=== PATIENT | female | born 1955 ===

== ENCOUNTER 2017-01-20 07:29 | Day surgery (SDC) | payer MEDICARE, OTHER ==
[2017-01-15 15:29] VITALS: BMI 21.7
[~2017-01-20 07:29] MED LIST: DEXAMETHASONE SOD PHOSPHATE 10 MG/ML 1 ML VIAL IV ONE; HYDROmorphone 1 MG/ML 1 ML SYRINGE IVP PRN; LACTATED RINGERS 1,000 ML IV SCH; LIDOCAINE 1% 20 ML VIAL (10MG/ML) FOR IV START INTRADERMA PRN; MIDAZOLAM 2 MG/2 ML VIAL IV PRN; ONDANSETRON 4 MG/2 ML VIAL IVP ONE; SCOPOLAMINE 1.5MG/72HR PATCH TRANSDERM ONE; ceFAZolin 2 GM in SODIUM CHLORIDE 0.9% 100 ML IVPB ONE
[2017-01-20 07:46] VITALS: RESP 16
[2017-01-20] MEDS ORDERED: MIDAZOLAM 2 MG/2 ML VIAL ONE (08:22)
[2017-01-20] MEDS ORDERED: PROPOFOL 10 MG/ML 20 ML VIAL IV ONE (08:22)
[2017-01-20 08:56] VITALS: TEMP 97.1
--- NOTE | 2017-01-20 09:29 | OP ---
DATE OF SERVICE: 01/20/2017 SURGEON: MITUL MORTON MD PREOPERATIVE DIAGNOSIS: Possible vesicovaginal fistula. POSTOPERATIVE DIAGNOSIS: Normal exam. OPERATION: Cystourethroscopy. ANESTHESIA: Intravenous sedation. : The patient is a 61-year-old female with a history of a vaginal discharge that began 2 or 3 months ago. The discharge is frequently thin and there has been concern that the patient could have a vesicovaginal fistula. A pelvic ultrasound on 01/12/2017 suggested a 3.3 x 2.3 x 4.3 cm mass in the posterior bladder; however, a CT scan of the pelvis in 12/11 showed no bladder abnormality and a calcified uterine fibroid was present adjacent to the bladder. I attempted to perform cystoscopy in my office, but this proved impossible as it was impossible to locate the urethral opening visually due to vaginal stenosis and flexion contractures of the hip. Cystoscopy under anesthesia is planned for further evaluation. DESCRIPTION OF PROCEDURE: The patient was taken the operating suite where adequate intravenous sedation was given. Patient was placed in the dorsal lithotomy position with her legs suspended from padded Abdulkadir stirrups. The perineum was prepped with Betadine solution and draped in sterile fashion. It was impossible to abduct the patient's legs more than 6 or 8 inches at the knees, which made visualization of the urethral meatus directly impossible. The 17 [employer] cystoscope sheath with 30-degree lens was eventually passed under endoscopic vision through the urethral opening and into the bladder. The bladder contained a moderate amount of cloudy urine. A sample was submitted for culture. The bladder was irrigated with sterile water. The bladder was then examined. Both ureteral orifices were of normal location and configuration and effluxed clear urine. The bladder was free of tumor, foreign body and diverticulum. There was no evidence of deformity on the posterior bladder wall to suggest a mass and there was no focal area of erythema on the floor of the bladder, which would suggest a fistula. The urethra was examined as the cystoscope was withdrawn and was unremarkable. The patient tolerated procedure well and left the operating room awake and in satisfactory condition. My final impression is that the patient has no evidence of bladder mass or definite vesicovaginal fistula. It is possible that due to the location of the patient's urethra a portion of the voided urine pools in the vagina and this may be a contributory factor to her intermittent vaginal discharge. No further urologic evaluation is planned at this time. MTDD
[2017-01-20 09:48] VITALS: BP 134/63; PULSE 58
== END 2017-01-20 10:17 | disposition home health service (06) ==
LOC: OR 07:29
PROVIDERS: ATTEND Urology
DX: N89.8 Other specified noninflammatory disorders of vagina (principal); R93.49 Abnormal radiologic findings on diagnostic imaging of other urinary organs; N30.20 Other chronic cystitis without hematuria; I12.9 Hypertensive chronic kidney disease with stage 1 through stage 4 chronic kidney disease, or unspecified chronic kidney disease; N18.9 Chronic kidney disease, unspecified; Z87.442 Personal history of urinary calculi; D25.9 Leiomyoma of uterus, unspecified; Z87.440 Personal history of urinary (tract) infections; Z74.01 Bed confinement status; Z86.14 Personal history of Methicillin resistant Staphylococcus aureus infection; D64.9 Anemia, unspecified; E87.6 Hypokalemia; M19.90 Unspecified osteoarthritis, unspecified site; F41.9 Anxiety disorder, unspecified; F32.9 Major depressive disorder, single episode, unspecified; J45.909 Unspecified asthma, uncomplicated; Z86.73 Personal history of transient ischemic attack (TIA), and cerebral infarction without residual deficits; Z79.2 Long term (current) use of antibiotics; Z79.891 Long term (current) use of opiate analgesic; Z79.899 Other long term (current) drug therapy; Z88.5 Allergy status to narcotic agent; Z87.891 Personal history of nicotine dependence; E07.9 Disorder of thyroid, unspecified
CPT/HCPCS: 87086; 87077; 87186; 52000; J2250; J1100; J0690; J2405; J2704